=== PATIENT | female | born 1990 | race Caucasian/White ===

== ENCOUNTER → 2016-09-18 | Outpatient (REF) | payer OTHER | END | disposition home or self-care (01) | LOC: M LAB REF 17:04 | PROVIDERS: ATTEND Advanced Practice Midwife | DX: Z34.83 Encounter for supervision of other normal pregnancy, third trimester (principal); Z36 Encounter for antenatal screening of mother; Z3A.00 Weeks of gestation of pregnancy not specified ==

== ENCOUNTER 2016-09-23 01:25 | Outpatient (CLI) | payer OTHER ==
[~2016-09-23] VITALS: Ht 162.6 cm; Wt 75.0 kg
[2016-09-23 01:36] VITALS: BP 132/88
--- NOTE | 2016-09-29 12:56 | IPN ---
DATE: 09/23/2016 CHIEF COMPLAINT: Contractions. SUBJECTIVE: Ms. Chapa is a 18-year-old, 2, para 1, who presents at 36 weeks estimated gestational age by last menstrual period and confirmed by first trimester ultrasound with complaints of contractions. She reports contractions throughout the night that increased in intensity and frequency. She reports active movement. Denies any vaginal bleeding or leakage of fluid. Her course has been unremarkable. OBJECTIVE: Her vital signs are stable. She is afebrile. She has a category 1 heart rate tracing with contractions on tocodynamometer. GENERAL APPEARANCE: Well appearing, no acute distress. ABDOMEN: Soft, gravid, nontender. CERVICAL: She was 2 cm dilated, 50% effaced, -3 station. She was reexamined approximately three hours later with a cervical examination, which was unchanged. ASSESSMENT: Mrs. Chapa is a 18-year-old, 2, para 1 at 36 weeks and 6 days estimated gestational age with contractions but not active labor. Reassuring status. PLAN: The patient was discharged home and provided with labor precautions and also instructed on kick counts. She will followup with an OB appointment next week.
== END 2016-09-23 06:30 | disposition home or self-care (01) ==
LOC: M LDO 01:25
PROVIDERS: ATTEND Obstetrics & Gynecology
DX: O47.03 False labor before 37 completed weeks of gestation, third trimester (principal); Z3A.36 36 weeks gestation of pregnancy

== ENCOUNTER 2016-10-03 08:41 | Inpatient (IN) | payer OTHER ==
[~2016-10-03] VITALS: Ht 162.6 cm; Wt 77.0 kg
[2016-10-03] VITALS (9 sets, daily range): BP systolic 111–137; BP diastolic 56–86
[2016-10-03] MEDS ORDERED: OXYTOCIN 30 UNITS IN 0.9% NaCl 500ML IV BAG (J2590) As Ordered ONE ×2 (08:52→09:45)
[2016-10-03] MEDS ORDERED: LR 1,000 ML IV SCH (08:57)
[2016-10-03] MEDS ORDERED: OXYTOCIN DRIP 30 UNITS in APPROPRIATE DILUENT 1 EA IV SCH ×2 (09:00→09:41)
[2016-10-03 09:23] LABS: MEAN CORPUSCULAR HEMOGLOBIN 25.8 pg (27.0-33.0); MEAN CORPUSCULAR HGB CONC 31.8 g/dl (32.0-36.5); MEAN CORPUSCULAR VOLUME 81.3 fl (80.0-96.0); WHITE BLOOD COUNT 9.2 K/mm3 (4.0-10.0)
[2016-10-03] MEDS ORDERED: PREN27TA3 PO (09:41)
[2016-10-03] MEDS ORDERED: MEASLES,MUMPS,RUBELLA VACCINE INJ (MMR-II) (90707) SC SCH (09:45)
[2016-10-03] MEDS ORDERED: LIDOCAINE 1% MDV INJ 50 ML VIAL INFIL ONE ×2 (09:45→10:00)
[2016-10-03] MEDS ORDERED: RHOGAM 300 MCG (1500 IU) INJ (J2790) IM SCH (09:45)
[2016-10-03] MEDS ORDERED: PROMETHAZINE 25 MG TAB PO PRN (09:45)
[2016-10-03] MEDS ORDERED: ACETAMINOPHEN 500 MG TAB PO PRN (09:45)
[2016-10-03] MEDS ORDERED: DIBUCAINE 1% OINTMENT 30GM TOP PRN (09:45)
[2016-10-03] MEDS ORDERED: DOCUSATE SODIUM 100 MG CAP PO PRN (09:45)
[2016-10-03] MEDS ORDERED: ONDANSETRON 4MG/2ML VIAL (J2405) IV PRN (09:45)
[2016-10-03] MEDS: METHYLERGONOVINE MALEATE 0.2 MG TAB PO SCH ×4 (10:11→21:48)
[2016-10-03] MEDS: IBUPROFEN 800 MG TAB PO PRN ×2 (11:51→21:45)
[2016-10-03] MEDS: PRENATAL VITAMIN TAB PO SCH (12:22)
[2016-10-03] MEDS: LR 1,000 ML IV SCH ×2 (12:23→17:24)
[2016-10-04] MEDS: LR 1,000 ML IV SCH ×2 (00:58→08:09)
[2016-10-04 02:00] VITALS: BP 143/80
[2016-10-04] MEDS: METHYLERGONOVINE MALEATE 0.2 MG TAB PO SCH ×3 (02:00→10:03)
[2016-10-04 05:52] VITALS: BP 113/60
[2016-10-04] MEDS: PRENATAL VITAMIN TAB PO SCH (08:05)
[2016-10-04 10:03] VITALS: BP 122/74
[2016-10-04] MEDS ORDERED: TYLE500T78 PO (14:10)
[2016-10-04] MEDS ORDERED: MOTR200T44 PO (14:10)
== END 2016-10-04 14:20 | disposition home or self-care (01) | DRG 775 ==
LOC: M LDI 08:41 → M OBS 14:21
PROVIDERS: ADMIT Obstetrics & Gynecology; ATTEND Obstetrics & Gynecology
PROC: 10E0XZZ Delivery of Products of Conception, External Approach (ICD-10-PCS; principal; 2016-10-03)
PROC: 0HQ9XZZ Repair Perineum Skin, External Approach (ICD-10-PCS; 2016-10-03)
DX: O69.82X0 Labor and delivery complicated by other cord entanglement, without compression, not applicable or unspecified (principal); O99.824 Streptococcus B carrier state complicating childbirth; Z37.0 Single live birth; Z3A.38 38 weeks gestation of pregnancy; O70.0 First degree perineal laceration during delivery